=== PATIENT | female | born 1990 | race Caucasian/White ===

== ENCOUNTER 2017-10-21 15:10 | Emergency (ER) | payer OTHER | END 2017-10-21 17:02 | disposition home or self-care (01) | LOC: M ED 15:10 | DX: I73.00 Raynaud's syndrome without gangrene (principal) | CPT/HCPCS: 93971 ==

== ENCOUNTER → 2018-01-18 | Outpatient (CLI) | payer OTHER | LOC: M RAD 12:46 | DX: N64.4 Mastodynia (principal); R92.8 Other abnormal and inconclusive findings on diagnostic imaging of breast; Z80.3 Family history of malignant neoplasm of breast | CPT/HCPCS: 77065 ==

== ENCOUNTER 2018-08-13 09:52 | Emergency (ER) | payer OTHER ==
[~2018-08-13] VITALS: Ht 154.9 cm; Wt 39.0 kg
[~2018-08-13 09:52] MED LIST: ORTH1TAB16 PO
[2018-08-13] MEDS ORDERED: GASTROGRAFIN SOLUTION 30ML (Q9963) As Ordered ONE (11:00)
[2018-08-13 11:01] LABS: HCG, SERUM QUALITATIVE NEGATIVE (NEGATIVE)
[2018-08-13 11:03] LABS: BASO # 0.1 10^3/uL (0.0-0.2); EOS # 0.2 10^3/uL (0.0-0.50); EOS % 2.9 % (0.0-3.0); HEMATOCRIT 39.6 % (36.0-47.0); HEMOGLOBIN 13.3 g/dl (12.0-15.5); LYMPH % 34.5 % (24.0-44.0); MEAN CORPUSCULAR HEMOGLOBIN 31.1 pg (27.0-33.0); MEAN CORPUSCULAR HGB CONC 33.6 g/dl (32.0-36.5); MEAN CORPUSCULAR VOLUME 92.7 fl (80.0-96.0); MONO # 0.5 10^3/uL (0.0-0.8); NEUTROPHILS # 3.1 10^3/uL (1.8-7.7); NEUTROPHILS % 53.3 % (36.0-66.0); PLATELET COUNT, AUTOMATED 293 10^3/uL (150-450); RED BLOOD COUNT 4.27 10^6/uL (4.00-5.40); WHITE BLOOD COUNT 5.9 10^3/uL (4.0-10.0)
[2018-08-13 11:07] LABS: ALBUMIN 4.2 GM/DL (3.2-5.2); ALT/SGPT 17 U/L (12-78); BILIRUBIN,DIRECT 0.2 MG/DL (0.0-0.2); BILIRUBIN,TOTAL 0.9 MG/DL (0.2-1.0); BLOOD UREA NITROGEN 11 MG/DL (7-18); CALCIUM LEVEL 9.1 MG/DL (8.5-10.1); CARBON DIOXIDE LEVEL 26 MEQ/L (21-32); CHLORIDE LEVEL 105 MEQ/L (98-107); CREATININE FOR GFR 0.79 MG/DL (0.55-1.30); GLOMERULAR FILTRATION RATE > 60.0 (>60); GLUCOSE, FASTING 99 MG/DL (70-100); LIPASE 139 U/L (73-393); POTASSIUM SERUM 3.5 MEQ/L (3.5-5.1); SODIUM LEVEL 138 MEQ/L (136-145)
[2018-08-13] MEDS: GASTROGRAFIN SOLUTION 30ML PO SCH ×2 (11:09→11:35)
[2018-08-13 11:31] LABS: C REACTIVE PROTEIN QUANTITATIV < 0.30 MG/DL (0.00-0.30)
[2018-08-13 11:51] LABS: ERYTHROCYTE SEDIMENTATION RATE 9 mm/hr (0-20)
[2018-08-13] MEDS ORDERED: ISOVUE-370 76% 100ML VIAL (Q9967) As Ordered ONE (12:43)
--- NOTE | 2018-08-13 13:28 | REP ---
CT abdomen and pelvis with IV and oral contrast: History: Left-sided abdomen pain. Rule out inflammatory bowel disease. No comparison CT study. CT contrast dose: 100 mL of intravenous Isovue 370. 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 The lung bases are clear. The liver and the spleen are normal in size and homogeneous in texture. The gallbladder is unremarkable. No pancreatic lesion is seen. No adrenal abnormality is observed on either side. The kidneys enhance symmetrically and are morphologically intact. No retroperitoneal mass or adenopathy is seen. There is very little intraperitoneal fat. Small and large bowel loops are normal in caliber. No obstructive lesion is seen. No mural thickening or other inflammatory change is noted. No evidence of adenopathy. No free fluid is seen. Uterus is tipped to the left but unremarkable. Normal ovaries are seen. Urinary bladder is unremarkable. No abdominal wall defect is seen. The appendix is surgically absent by history. Impression: Unremarkable CT study abdomen and pelvis with IV and oral contrast. No acute intra-abdominal abnormality. Electronically Signed by Luis Alicia MD 08/13/2018 01:51 P
[2018-08-13 13:39] VITALS: BP 118/59
== END 2018-08-13 13:44 | disposition home or self-care (01) ==
LOC: M ED 09:52
DX: K92.1 Melena (principal); M32.9 Systemic lupus erythematosus, unspecified
CPT/HCPCS: 74177; 80048; 80076; 81001; 83690; 84703; 85025; 85652; 86140; 99284; Q9967

== ENCOUNTER → 2018-08-21 | Outpatient (CLI) | payer OTHER ==
--- NOTE | 2018-08-22 08:15 | REP ---
Focused left breast sonography: History: 28-year-old female with left breast pain. Repeat left breast sonography recommended January 18, 2018 regarding a 1.1 centimeter hypoechoic area most likely a band of echodense fibroglandular tissue. This was read as BI-RADS 3 and 6-month followup was recommended. Sonographic findings: Heterogeneous fibroglandular background echotexture is seen. Lobular configuration breast parenchyma is seen interspersed with more echogenic fibroglandular tissue. There is a small 0.4 cm cyst at 4 o'clock. No suspicious sonographic finding. Impression: Heterogeneous fibroglandular background echotexture. No suspicious ultrasound finding. Clinical followup is advised. BI-RADS category 2 benign left breast imaging. Electronically Signed by Luis Alicia MD 08/22/2018 08:58 A
== END ==
LOC: M RAD 17:37
PROVIDERS: ATTEND Family Medicine
DX: N64.4 Mastodynia (principal); N60.02 Solitary cyst of left breast